=== PATIENT | female | born 1975 | race Caucasian/White ===

== ENCOUNTER 2021-09-26 08:58 | Outpatient (CLI) | payer BC | END 2021-09-26 08:59 | disposition home or self-care (01) | LOC: CSHMAMMO 08:58 | PROVIDERS: ATTEND Family Medicine | DX: Z12.31 Encounter for screening mammogram for malignant neoplasm of breast (principal) | CPT/HCPCS: 77063; 77067 ==

== ENCOUNTER 2022-09-27 11:46 | Outpatient (CLI) | payer BC | END 2022-09-27 11:47 | disposition home or self-care (01) | LOC: CSHMAMMO 11:46 | PROVIDERS: ATTEND Internal Medicine | DX: Z12.31 Encounter for screening mammogram for malignant neoplasm of breast (principal) | CPT/HCPCS: 77063; 77067 ==

== ENCOUNTER 2024-10-06 15:41 | Outpatient (CLI) | payer BC | END 2024-10-06 15:42 | disposition home or self-care (01) | LOC: CSHMAMMO 15:41 | PROVIDERS: ATTEND Internal Medicine | DX: Z12.31 Encounter for screening mammogram for malignant neoplasm of breast (principal) | CPT/HCPCS: 77063; 77067 ==